=== PATIENT | female | born 1975 | race Caucasian/White ===

== ENCOUNTER 2024-01-18 19:58 | Emergency (ER) | payer OTHER, SELFPAY ==
[2024-01-18 20:05] VITALS: BP 140/75; PULSE 78; RESP 18; TEMP 36.6; O2SAT 99; BMI 28.3
--- NOTE | 2024-01-18 20:09 | ED_ITS ---
HPI - General Adult General Chief complaint: Recheck/Abnormal Lab/Rx Stated complaint: plugged ANNY drain, sx three weeks ago Time Seen by Provider: 01/18/24 20:09 History of Present Illness HPI narrative: 48-year-old female with history of hypertension, migraines, GERD with a appendectomy 3 weeks ago through the [facility] with Dr. Lin. Patient presents today saying she has had some drainage around her left ANNY drain. Patient states she had 2 drains the right 1 was removed a week or 2 ago. This 1 has been present she had had follow up on the was still draining about 90-100 mL daily through this Saturday. On she would about 70 mL out. Saturday and Saturday she had 10 mL total. Today she noticed some fluid leak through her clothes. She states it is saturated them. She states she did not change clothes multiple times. She notes that the drainage was clear yellow with slight pink tinge. The drain has not had anything additional draining. She denies fevers or chills. She has not appreciate a lot of redness or swelling around the site. She had some discomfort a little posterior to the site just earlier today but states that is improved. She states her incision seems to be healing well. Patient states no chest pain, no shortness of breath. No nausea or vomiting today. No diarrhea or constipation. She states she is stooling regularly with no urinary symptoms. Patient has a follow up appointment in the next week at the [facility] with [facility]. Lin. She states she was told if it drains less than 30 mL for 2 days that she could have her drain pulled earlier. She did go to the walk-in clinic who gave her an ABD pad around the site. She denies any allergies. Related Data Home Medications Medication Instructions Recorded Confirmed boswellia 400 mg PO BID 03/24/19 12/15/19 butterbur root extract 50 mg 225 mg PO BID 03/24/19 12/15/19 capsule coenzyme Q10 75 mg capsule (Ultra 75 mg PO BID 03/24/19 12/15/19 CoQ10) feverfew 1,000 mg capsule 1,140 mg PO BID 03/24/19 12/15/19 hydrochlorothiazide 12.5 mg tablet 12.5 mg PO DAILY 03/24/19 12/15/19 lisinopril 10 mg tablet 10 mg PO DAILY 03/24/19 12/15/19 magnesium 200 mg tablet 400 mg PO BID 03/24/19 12/15/19 multivitamin (Daily Multi-Vitamin 1 tab PO DAILY 03/24/19 12/15/19 tablet) rabeprazole 20 mg tablet,delayed 20 mg PO BID 03/24/19 12/15/19 release (AcipHex) turmeric/ curcumin PO BID 03/24/19 12/15/19 cholecalciferol (vitamin D3) 100 4,000 unit PO DAILY 09/15/19 12/15/19 mcg (4,000 unit) capsule krill oil 500 mg capsule 500 mg PO DAILY 09/15/19 12/15/19 migravent PO BID 12/15/19 riboflavin (vitamin B2) 100 mg 400 mg PO BID 12/15/19 12/15/19 tablet Previous Rx's Medication Instructions Recorded frovatriptan 2.5 mg tablet See Rx Instructions PO .COMPLEX 09/15/19 #10 tabs erenumab-aooe 140 mg/mL 140 mg SUBCUT QMONTH #3 mL 10/12/19 subcutaneous auto-injector (Aimovig Autoinjector) ubrogepant 50 mg tablet 50 mg PO .bid prn #10 tabs 12/15/19 Allergies Allergy/AdvReac Type Severity Reaction Status Date / Time ADHESIVE Allergy Unknown Uncoded 12/15/19 11:01 Review of Systems Review of Systems ROS Unobtainable: All systems reviewed & are unremarkable except as noted in HPI and below Patient History Medical History Benign hypertension due to increased intracranial pressure Surgical History H/O bilateral breast reduction surgery History of appendectomy H/O ankle fusion Family History Mother Diabetes mellitus Father Heart attack Social History Smoking Status: Former smoker Smoking Status: Former smoker Exam Narrative Exam Narrative: GENERAL: Alert and oriented x three, well-appearing female in mild distress. HEENT: Head normocephalic, atraumatic, EOMI, pupils reactive, face symmetric, moist mucous membranes NECK: Supple, full range of motion CARDIOVASCULAR: Regular rate and rhythm without murmurs, rubs or gallops. RESPIRATORY: Breath sounds equal bilaterally, no wheezes rales or rhonchi. ABDOMEN: Soft, nontender. Normoactive bowel sounds all 4 quadrants. No guarding or rebound, rigidity, no mass, patient has a large horizontal incision across from hip to hip consistent with salazar ectomy. There is a ANNY drain on the left that does not have any fluid in it it does not appear clotted off there is a little bit of dried blood in the channel. Patient has scant erythema just at the [place] where the drainage but without any extending outwards no fluctuance, no warmth, nontender. : No CVA tenderness EXTREMITIES: Normal range of motion, no clubbing or edema. Neurovascularly intact NEUROLOGICAL: Cranial nerves II through XII grossly intact. Moving all extremities SKIN: Warm, dry, no petechiae, no rashes or lesions. Initial Vital Signs Initial Vital Signs: Vital Signs Temperature 97.8 F 01/18/24 20:05 Pulse Rate 78 01/18/24 20:05 Respiratory Rate 18 01/18/24 20:05 Blood Pressure 140/75 01/18/24 20:05 Pulse Oximetry 99 01/18/24 20:05 Oxygen Delivery Method Room Air 01/18/24 20:05 Course Vital Signs Vital signs: Vital Signs - 8 hr 01/18/24 20:05 Temperature 97.8 F Pulse Rate 78 Respiratory Rate 18 Blood Pressure 140/75 Pulse Oximetry 99 Oxygen Delivery Method Room Air Medical Decision Making [facility] Narrative Medical decision making narrative: Patient's exam is overall benign, patient does not have any active drainage currently, unable to express any with palpation. Her ANNY drain does appear to be in place does not appear to be clotted off or malfunctioning, with no clear signs of fluid collection or changes on her exam patient has ABD pad is dry and was changed around 5:00 p.m. and is now around 8pm. Paged out at [facility] for Dr. Oneida Lin, spoke with on-call plastics for . Reviewed patient's output, decreased output has had some drainage around it does not appear infected. At this time he would recommend leaving it in place can use ABDs surrounding the site if she continues to have drainage around it to reach out to their office number after hours number to see them sooner. If it does not have any additional output they will see her in clinic for removal, patient has appointment this upcoming . Reviewed recommendations with patient, including return precautions. All questions answered. She believes she does have the after hours number home. Discharge Plan Departure Patient Disposition: Home Clinical Impression: Drainage from surgical wound Activity Restrictions/Additional Instructions: I spoke with Plastic surgery on-call fro Dr. Lin. At this time they recommend keeping the drain in place, if you continue to have fluid draining around they asked that you call the office number/after hours number. If you continued to have minimal output without any surrounding drainage they will likely have your drain pulled. Please return for fevers, increasing redness or swelling or pain of your surgical site or other new or concerning changes. Prescriptions: No Action Aimovig Autoinjector 140 mg/mL auto-injector 140 mg SUBCUT QMONTH Qty: 3 4RF Rx Instructions: Replaces AJOVY rabeprazole [AcipHex] 20 mg tablet,delayed release (DR/EC) 20 mg PO BID lisinopril 10 mg tablet 10 mg PO DAILY hydrochlorothiazide 12.5 mg tablet 12.5 mg PO DAILY feverfew 1,000 mg capsule 1,140 mg PO BID butterbur root extract 50 mg capsule 225 mg PO BID turmeric/ curcumin PO BID boswellia 400 mg PO BID magnesium 200 mg tablet 400 mg PO BID Ultra CoQ10 75 mg capsule 75 mg PO BID multivitamin [Daily Multi-Vitamin] tablet 1 tab PO DAILY riboflavin (vitamin B2) 100 mg tablet 400 mg PO BID migravent PO BID ubrogepant 50 mg tablet 50 mg PO .bid prn Qty: 10 2RF Rx Instructions: She has failed all triptans. cholecalciferol (vitamin D3) 4,000 unit capsule 4,000 unit PO DAILY krill oil 500 mg capsule 500 mg PO DAILY frovatriptan 2.5 mg tablet See Rx Instructions PO .COMPLEX Qty: 10 3RF Rx Instructions: take 1 tab at onset of headache; if no relief may repeat 1 tab in 2hr; max = 2 tabs/24 hrs PO Referrals: Anabel Brady, [Non-Staff] - Stand Alone Forms: Patient Portal/API
== END 2024-01-18 20:52 | disposition home or self-care (01) ==
PROVIDERS: Emergency Provider Emergency Medicine; PCP Nurse Practitioner Primary Care
DX: T85.638A Leakage of other specified internal prosthetic devices, implants and grafts, initial encounter (principal)
CPT/HCPCS: 99281